=== PATIENT | female | born 1955 | race Caucasian/White ===

== ENCOUNTER 2024-09-17 18:03 | Emergency (ER) | payer BC, MEDICARE ==
[2024-09-17] MEDS: Acetaminophen 325 MG Tab PO ONE (19:00)
== END 2024-09-17 20:23 | disposition home or self-care (01) ==
LOC: JD.ED 18:03
DX: S52.501A Unspecified fracture of the lower end of right radius, initial encounter for closed fracture (principal); E03.9 Hypothyroidism, unspecified; Z88.5 Allergy status to narcotic agent; Z88.8 Allergy status to other drugs, medicaments and biological substances; Z90.49 Acquired absence of other specified parts of digestive tract; Z90.710 Acquired absence of both cervix and uterus; W01.0XXA Fall on same level from slipping, tripping and stumbling without subsequent striking against object, initial encounter
CPT/HCPCS: 73110; 99283; A9270; 29125